=== PATIENT | female | born 1985 | race African-American/Black ===

== ENCOUNTER 2020-09-02 05:39 | Inpatient (IN) | payer OTHER ==
[2020-08-28 12:02] LABS: HEMATOCRIT 38.9 % (36.0-47.0); HEMOGLOBIN 13.3 g/dL (12.0-15.5); MEAN CORPUSCULAR HEMOGLOBIN 28.6 pg (27.0-33.4); MEAN CORPUSCULAR HGB CONC 34.3 g/dL (32.0-36.0); MEAN CORPUSCULAR VOLUME 84 fl (80-97); PLATELET COUNT 273 10^3/uL (150-450); RED BLOOD COUNT 4.66 10^6/uL (3.72-5.28); RED CELL DISTRIBUTION WIDTH 13.2 % (11.5-14.0); WHITE BLOOD COUNT 6.9 10^3/uL (4.0-10.5)
[2020-08-28 12:31] LABS: URINE AMPHETAMINES SCREEN NEGATIVE; URINE BARBITURATES SCREEN NEGATIVE; URINE BENZODIAZEPINES SCREEN NEGATIVE; URINE COCAINE SCREEN NEGATIVE; URINE MARIJUANA (THC) SCREEN NEGATIVE; URINE METHADONE SCREEN NEGATIVE; URINE PHENCYCLIDINE SCREEN NEGATIVE
[2020-08-28 12:34] LABS: ANION GAP 7 (5-19); BLOOD UREA NITROGEN 9 mg/dL (7-20); CALCIUM 9.2 mg/dL (8.4-10.2); CARBON DIOXIDE 26 mmol/L (22-30); CHLORIDE 105 mmol/L (98-107); GLUCOSE 87 mg/dL (75-110); POTASSIUM 4.5 mmol/L (3.6-5.0)
[2020-08-28 12:39] LABS: ALCOHOL < 10 mg/dL (NONE DETECTED)
--- NOTE | 2020-08-29 17:26 | EKG REPORT ---
SEVERITY:- ABNORMAL ECG - SINUS RHYTHM FIRST DEGREE AV BLOCK : Confirmed by: Rylee Ortega MD 29-Aug-2020 17:26:12
[~2020-09-02 05:39] MED LIST: CLINDAMYCIN 900 MG/D5W RTU 900 MG/50 ML RTUPB IV ONE; CLINDAMYCIN 900 MG/D5W RTU 900 MG/50 ML RTUPB IV PRN; RINGERS SOLUTION,LACTATED 1,000 ML IV PRN
[2020-09-02] MEDS ORDERED: LIDOCAINE 2% INJ (20 MG/ML) 20 ML MDV ONE (06:52)
[2020-09-02] MEDS ORDERED: HYDROMORPHONE HCL INJ/PF 2 MG/ML AMPULE ONE (06:53)
[2020-09-02] MEDS ORDERED: FENTANYL CITRATE INJ/PF 100 MCG/2 ML AMPUL ONE (06:54)
[2020-09-02] MEDS ORDERED: DEXMEDETOMIDINE INJ 80 MCG/20 ML VIAL IV ONE (06:54)
[2020-09-02] MEDS ORDERED: DEXAMETHASONE SOD PHOSPHATE INJ 4 MG/1 ML VIAL ONE ×2 (06:54→08:25)
[2020-09-02] MEDS ORDERED: ONDANSETRON HCL INJ/PF 4 MG/2 ML SDV ONE ×2 (06:54→13:14)
[2020-09-02] MEDS ORDERED: MIDAZOLAM 2 MG/2 ML INJ ONE (06:54)
[2020-09-02] MEDS ORDERED: EPHEDRINE SULFATE INJ 50 MG/1 ML AMPULE ONE (06:54)
[2020-09-02] MEDS ORDERED: PROPOFOL INJ 200 MG/20 ML VIAL IV ONE ×2 (06:55→08:26)
[2020-09-02] MEDS ORDERED: BACITRACIN INJ 50,000 UNIT VIAL ONE (07:11)
[2020-09-02] MEDS ORDERED: THROMBIN (BOVINE) 5000 UNIT EPITAXIS KIT ONE (07:11)
[2020-09-02] MEDS ORDERED: ONDANSETRON HCL INJ/PF 4 MG/2 ML SDV IV PRN ×2 (07:54→12:30)
[2020-09-02] MEDS ORDERED: MEPERIDINE HCL/PF INJ 25 MG/1 ML DISP.SYRIN IV PRN (07:54)
[2020-09-02] MEDS ORDERED: MORPHINE SULFATE 10 MG/ML INJ IV PRN (07:54)
[2020-09-02] MEDS ORDERED: DIPHENHYDRAMINE HCL 50 MG/ML VIAL IV PRN ×2 (07:54→12:34)
[2020-09-02] MEDS ORDERED: FENTANYL CITRATE INJ/PF 100 MCG/2 ML AMPUL IV PRN ×3 (07:54)
[2020-09-02] MEDS ORDERED: PROMETHAZINE HCL INJ 25 MG/1 ML VIAL IV PRN (07:54)
--- NOTE | 2020-09-02 10:45 | RADIOLOGY REPORT (SQ) ---
EXAM DESCRIPTION: CERV SP 3 VIEW OR LESS; NO CHG FLUORO IMAGES COMPLETED DATE/TIME: 09/02/2020 10:27 am REASON FOR STUDY: C5-C6 AND C6-C7 DISKECTOMY AND FUSION M54.12 RADICULOPATHY, CERVICAL REGION M48.0 2 SPINAL STENOSIS, CERVICAL REGION M62.81 MUSCLE WEAKNESS (GENERALIZED) COMPARISON: None. FLUOROSCOPY TIME: 0.2 minutes Spot images saved to PACS. TECHNIQUE: Intra-operative images acquired during surgical procedure to evaluate progress. NUMBER OF IMAGES: 2 LIMITATIONS: None. FINDINGS: Fluoroscopy was provided for intraoperative procedure. Please refer to the operative repo rt for further discussion. IMPRESSION: IMAGE(S) OBTAINED DURING PROCEDURE. COMMENT: Quality ID [id number]: Final reports for procedures using fluoroscopy that document radiation exp osure indices, or exposure time and number of fluorographic images (if radiation exposure indices are not available) Please consult full operative report of the attending physician for description of the procedure. TECHNICAL DOCUMENTATION: JOB ID: [id number] 2010 [facility]- All Rights Reserved Reading location - IP/workstation name: [email or web address]
--- NOTE | 2020-09-02 10:45 | RADIOLOGY REPORT (SQ) ---
EXAM DESCRIPTION: CERV SP 3 VIEW OR LESS; NO CHG FLUORO IMAGES COMPLETED DATE/TIME: 09/02/2020 10:27 am REASON FOR STUDY: C5-C6 AND C6-C7 DISKECTOMY AND FUSION M54.12 RADICULOPATHY, CERVICAL REGION M48.0 2 SPINAL STENOSIS, CERVICAL REGION M62.81 MUSCLE WEAKNESS (GENERALIZED) COMPARISON: None. FLUOROSCOPY TIME: 0.2 minutes Spot images saved to PACS. TECHNIQUE: Intra-operative images acquired during surgical procedure to evaluate progress. NUMBER OF IMAGES: 2 LIMITATIONS: None. FINDINGS: Fluoroscopy was provided for intraoperative procedure. Please refer to the operative repo rt for further discussion. IMPRESSION: IMAGE(S) OBTAINED DURING PROCEDURE. COMMENT: Quality ID [id number]: Final reports for procedures using fluoroscopy that document radiation exp osure indices, or exposure time and number of fluorographic images (if radiation exposure indices are not available) Please consult full operative report of the attending physician for description of the procedure. TECHNICAL DOCUMENTATION: JOB ID: [id number] 2010 [employer]- All Rights Reserved Reading location - IP/workstation name: [email or web address]
--- NOTE | 2020-09-02 10:51 | Operative Report ---
Operative Report DATE OF SURGERY: 09/02/20 PREOPERATIVE DIAGNOSIS: C5-6 and C6-7 herniated nucleus pulposus and central st enosis and radiculitis and neck pain POSTOPERATIVE DIAGNOSIS: C5-6 and C6-7 herniated nucleus pulposus and central stenosis and radiculitis and neck pain. Status post anterior cervical discectomy and fusion with instrumentation interbody spacers and allograft and anterior instrumentation at C5-6 and C6-7 as well as left iliac crest aspiration through a separate incision for bone marrow aspirate OPERATION: anterior cervical discectomy and fusion with instrumentation interbody spacers and allograft and anterior instrumentation at C5-6 and C6-7 as well as left iliac crest aspiration through a separate incision for bone marrow aspirate SURGEON: RICHARD ROACH RN CORONARY CARE UNIT: [facility] ANESTHESIA: GA COMPLICATIONS: None ESTIMATED BLOOD LOSS: 50 cc INTRAOPERATIVE FINDINGS: 1.5 cc master graft calcium triphosphate allograft C5- C6 Titan TCS small spacer 14 by 12 x 6 mm x 6 degree lordotic C6-7 Titan TCS small 14 x 12 x 7 mm 6 degree lordotic anterior small plate at C5-6 with 3.5 x 14 mm screws x2 and anterior small plate 3.5 mm x 40 mm screws x2 at C6-7 PROCEDURE: Patient is brought into the room and placed under general anesthesia. The patient received 900 mg of clindamycin within 1 hour of cut time. The patient had a [place] catheter placed at the beginning of the case and removed at the end of the case. The patient had SCDs and a warming blanket placed as well. The patient is placed on the radiolucent OSI table in the supine position with a bolster between the shoulder blades. After appropriate surgical timeout, the left iliac crest is aspirated 7 cm posterior to the anterior superior iliac spine. A total of 3 cc are aspirated. The skin is marked under lateral C-arm fluoroscopy to damian the appropriate levels. A transverse incision is carried out through the skin and electrocautery was used to maintain hemostasis. The platysma was incised and dissection was carried down through the pretracheal fascia down onto the pre-vertebral fascia. [place] retractors were used to retract mediolaterally and the appropriate disc space is marked with a bent needle and lateral C-arm fluoroscopy is obtained to verify the appropriate levels. Upon verification of the C5-6 level, [place] pin retractors are positioned at C5 and C6 and used to retract cephalad and caudad. The microscope was brought in under the microscope a complete anterior spur resection is carried out and complete discectomy endplates are also curetted to good bleeding bone in the posterior longitudinal ligament is resected as well as any posterior osteophytes as well as bilateral foraminotomies are performed. The appropriate size interbody spacer is determined and positioned in interbody space filled with bone marrow aspirate and allograft. Cranial motor testing was then obtained to verify good signals. Attention is then paid to the C6-7 level. The [place] pin is removed from C5 placed into C7 and the [place] pin retractors used to retract cephalad to caudad. The skyline retractor is repositioned and the longus coli muscles were elevated mediolaterally. The microscope was repositioned and a complete resection of anterior spurs and discectomy and curetting of the endplates is carried out. The posterior longitudinal ligament and posterior spurs are resected and foraminotomies were performed bilaterally. The appropriate size interbody spacer filled with allograft and bone marrow aspirate is placed in interbody space and cranial motor testing is then obtained again to verify good signals. The cast bar pins are removed and the holes are filled with bone wax. The appropriate anterior plate is positioned and screws are drilled and screws are placed into C5-6-C6-7. The screws are final tightened into the plate. And final cranial motor testing is obtained. Final C arm fluoroscopy is obtained to verify position of the screws and plate. The wound is irrigated with a liter of bacitracin irrigation. A 7 flat Bulgarian drain is brought in inferior and lateral to the incision placed the negative CAITIE pressure. The CAITIE drain is sutured to the skin. The platysma was reapproximated with 2-0 Vicryl. The skin is reapproximated with a running subcuticular 3-0 Monocryl stitch. Please note this procedure could not of been done without the assistance of Artur Streeter physician miner assistant and working under the microscope and carrying out the discectomy and placing the spacers. Please note that bone marrow aspiration CPT code 24607 utilized for the graft is better choice over structural bone harvesting from the iliac crest which has 20% chronic postoperative iliac crest and hip pain and also aspiration is less expensive. Both techniques have similar fusion rates for one level instrumented fusion with interbody spacer.
[2020-09-02] MEDS ORDERED: SUCCINYLCHOLINE CHLORIDE INJ 200 MG/10 ML VIAL ONE (11:59)
[2020-09-02] MEDS ORDERED: ROCURONIUM BROMIDE INJ 50 MG/5 ML VIAL IV ONE (11:59)
[2020-09-02] MEDS ORDERED: METHOCARBAMOL INJ/PF 1000 MG/10 ML SDV ONE (12:06)
[2020-09-02] MEDS ORDERED: HYDROCOD/ACETAMIN 7.5-325 MG/15 ML ORAL SOLN UDCUP ONE (12:21)
[2020-09-02] MEDS ORDERED: HYDROCOD/ACETAMIN 7.5-325 MG/15 ML ORAL SOLN UDCUP PO PRN (12:28)
[2020-09-02] MEDS ORDERED: ACETAMINOPHEN SOLN 325 MG/10.15 ML UDCUP PO PRN (12:28)
[2020-09-02] MEDS ORDERED: OXYCODONE-ACETAMINOPHEN 5-325 MG TABLET PO PRN (12:29)
[2020-09-02] MEDS ORDERED: PHENOL/SODIUM PHENOLATE 100 SPRAY/177 ML BOTTLE PO PRN (12:30)
[2020-09-02] MEDS ORDERED: PROMETHAZINE HCL INJ 25 MG/1 ML VIAL IM PRN (12:31)
[2020-09-02] MEDS ORDERED: PROMETHAZINE HCL 25 MG TABLET PO PRN (12:31)
[2020-09-02] MEDS ORDERED: DIAZEPAM 5 MG TABLET PO PRN (12:32)
[2020-09-02] MEDS ORDERED: METHOCARBAMOL 500 MG TABLET PO PRN (12:32)
[2020-09-02] MEDS ORDERED: DIPHENHYDRAMINE HCL 25 MG CAPSULE PO PRN (12:33)
[2020-09-02] MEDS ORDERED: METHOCARBAMOL INJ/PF 1000 MG/10 ML SDV IV PRN (12:36)
[2020-09-02] MEDS ORDERED: ACETAMINOPHEN SOLN 325 MG/10.15 ML UDCUP ONE (13:03)
--- NOTE | 2020-09-02 15:08 | PDOC DISCHARGE SUMMARY ---
General - Admit/Disc Date/PCP Admission Date/Primary Care Provider: 09/02/20 05:39 WALKER LOYD MD Discharge Date: 09/02/20 - Discharge Diagnosis Final Diagnosis: Let us post C5-6 C6-7 anterior cervical discectomy and fusion with instrumentation and iliac crest aspiration - Additional Information Resuscitation Status: Full Code Discharge Diet: As Tolerated Discharge Activity: Balance Activity w/Rest, No Lifting/Push/Pulling, No tub bath Referrals: RICHARD MARIE MD [ASSOCIATE] - Home Medications: Acetaminophen [Tylenol] 325 mg PO PRN PRN 08/28/20 Additional Information: Patient is doing very well after anterior cervical discectomy and fusion requesting to go home. Drain is removed dressing is changed patient is tolerating p.o. intake without a problem will be discharged to follow-up in 10 to 14 days. History of Present Illiness History of Present Illness: DIONE HERNANDEZ is a 35 year old female Physical Exam Vital Signs: Temp Pulse Resp BP Pulse Ox 98.5 F 64 14 162/112 H 93 09/02/20 11:50 09/02/20 12:20 09/02/20 12:20 09/02/20 12:20 09/02/20 12:20 Intake & Output 09/01/20 09/02/20 09/03/20 06:59 06:59 06:59 Intake Total 0 1550 Output Total 450 Balance 0 1100 Results Laboratory Results: WBC 6.9 10^3/uL (4.0-10.5) 08/28/20 11:22 RBC 4.66 10^6/uL (3.72-5.28) 08/28/20 11:22 Hgb 13.3 g/dL (12.0-15.5) 08/28/20 11:22 Hct 38.9 % (36.0-47.0) 08/28/20 11:22 MCV 84 fl (80-97) 08/28/20 11:22 MCH 28.6 pg (27.0-33.4) 08/28/20 11:22 MCHC 34.3 g/dL (32.0-36.0) 08/28/20 11:22 RDW 13.2 % (11.5-14.0) 08/28/20 11:22 Plt Count 273 10^3/uL (150-450) 08/28/20 11:22 Sodium 137.7 mmol/L (137-145) 08/28/20 11:22 Potassium 4.5 mmol/L (3.6-5.0) 08/28/20 11:22 Chloride 105 mmol/L (98-107) 08/28/20 11:22 Carbon Dioxide 26 mmol/L (22-30) 08/28/20 11:22 Anion Gap 7 (5-19) 08/28/20 11:22 BUN 9 mg/dL (7-20) 08/28/20 11:22 Creatinine 0.76 mg/dL (0.52-1.25) 08/28/20 11:22 Est GFR ( Amer) > 60 (>60) 08/28/20 11:22 Est GFR (MDRD) Non-Af > 60 (>60) 08/28/20 11:22 Glucose 87 mg/dL (75-110) 08/28/20 11:22 Calcium 9.2 mg/dL (8.4-10.2) 08/28/20 11:22 Urine HCG, Qual NEGATIVE (NEGATIVE) 09/02/20 05:30 Urine Opiates Screen NEGATIVE 08/28/20 11:23 Urine Methadone Screen NEGATIVE 08/28/20 11:23 Ur Barbiturates Screen NEGATIVE 08/28/20 11:23 Ur Phencyclidine Scrn NEGATIVE 08/28/20 11:23 Ur Amphetamines Screen NEGATIVE 08/28/20 11:23 U Benzodiazepines Scrn NEGATIVE 08/28/20 11:23 Urine Cocaine Screen NEGATIVE 08/28/20 11:23 U Marijuana (THC) Screen NEGATIVE 08/28/20 11:23 Serum Alcohol < 10 mg/dL (NONE DETECTED) 08/28/20 11:22 COVID-19 Source See comment 08/28/20 11:27 COVID-19 (LIA) Not Detected (Not Detect) 08/28/20 11:27 Impressions: Cervical Spine X-Ray 09/02/20 00:00 IMPRESSION: IMAGE(S) OBTAINED DURING PROCEDURE. Fluoroscopy 09/02/20 00:00
[2020-09-02 17:38] VITALS: BP 152/100
[2020-09-02] MEDS ORDERED: SENNOSIDES/DOCUSATE 8.6-50 MG 1 EACH TABLET PO SCH (18:00)
== END 2020-09-02 15:30 | disposition home or self-care (01) | DRG 473 ==
LOC: INOR 05:39 → UNDODISIN 17:20
PROVIDERS: ADMIT Orthopaedic Surgery; ATTEND Orthopaedic Surgery
PROC: 0RT30ZZ Resection of Cervical Vertebral Disc, Open Approach (ICD-10-PCS; 2020-09-02)
PROC: 01N10ZZ Release Cervical Nerve, Open Approach (ICD-10-PCS; 2020-09-02)
PROC: 07DR3ZZ Extraction of Iliac Bone Marrow, Percutaneous Approach (ICD-10-PCS; 2020-09-02)
PROC: 0RG20A0 Fusion of 2 or more Cervical Vertebral Joints with Interbody Fusion Device, Anterior Approach, Anterior Column, Open Approach (ICD-10-PCS; principal; 2020-09-02 07:30)
DX: M50.122 Cervical disc disorder at C5-C6 level with radiculopathy (principal); M48.02 Spinal stenosis, cervical region; I10 Essential (primary) hypertension; M62.81 Muscle weakness (generalized); Z88.0 Allergy status to penicillin; Z90.49 Acquired absence of other specified parts of digestive tract; Z20.828 Contact with and (suspected) exposure to other viral communicable diseases
CPT/HCPCS: 600; 72040; 80048; 80307; 81025; 85027; 87070; 87635; 93005; 93010; A4649; C1713; C1776; C9803; J0330; J1100; J1170; J2250; J2405; J2704; J2800; J3010; J3490